=== PATIENT | female | born 1965 | race Caucasian/White ===

== ENCOUNTER 2017-09-19 10:52 | Emergency (ER) | payer MEDICARE, MEDICAID ==
[~2017-09-19] VITALS: Ht 165.1 cm; Wt 49.1 kg
[2017-09-19 10:54] VITALS: Ht 165.1 cm; Wt 49.1 kg
[2017-09-19] MEDS ORDERED: SYNTHROID88 MCG PO (10:58)
[2017-09-19] MEDS ORDERED: VALIUM5 MG PO (10:59)
[2017-09-19] MEDS ORDERED: ADDERALL 10 MG10 MG PO (10:59)
[2017-09-19] MEDS ORDERED: LYRICA225 MG PO (10:59)
[2017-09-19] MEDS ORDERED: LAMICTAL ODT200 MG PO (10:59)
[2017-09-19] MEDS ORDERED: PAXIL10 MG PO (11:00)
[2017-09-19 11:53] LABS: ALBUMIN 4.2 g/dL (3.4-5.0); ALKALINE PHOSPHATASE 109 U/L (46-116); ALT (SGPT) 15 U/L (10-68); BILIRUBIN - TOTAL 0.22 mg/dL (0.2-1.3); CALC OSMOLALITY 286 mosm/kg (275-300); CALCIUM 9.6 mg/dL (8.5-10.1); CARBON DIOXIDE 30.6 mmol/L (21.0-32.0); CHLORIDE - SERUM 105 mmol/L (98-107); CREATININE - SERUM 0.5 mg/dL (0.6-1.3); GLUCOSE 96 mg/dL (74-106); POTASSIUM - SERUM 4.3 mmol/L (3.5-5.1); PROTEIN - SERUM 7.9 g/dL (6.4-8.2); SODIUM 143 mmol/L (136-145); UREA NITROGEN 18 mg/dL (7-18); eGFR NON AFRICAN AMERICAN > 90 mL/min (90-120)
[2017-09-19 12:01] LABS: APPEARANCE CLEAR (CLEAR); BILIRUBIN NEGATIVE (NEGATIVE); COLOR YELLOW (YELLOW); GLUCOSE NEGATIVE (NEGATIVE); KETONE NEGATIVE (NEGATIVE); NITRITE NEGATIVE (NEGATIVE); PROTEIN NEGATIVE (NEGATIVE); UROBILINOGEN NORMAL (NORMAL)
[2017-09-19 12:02] LABS: THYROID STIMULATING HORMONE 0.29 uIU/mL (0.36-3.74)
[2017-09-19 12:37] LABS: BASOPHILS 0.2 % (0-2); HEMOGLOBIN 15.1 g/dL (12-16); IMMATURE GRANULOCYTES 0.2 % (0-5); LYMPHOCYTES 18.9 % (15-50); MCH 30.4 pg (26.0-34.0); MCHC 33.6 g/dL (31.0-37.0); MCV 90.7 fL (80.0-100.0); MEAN PLATELET VOLUME 9.4 fL (7.4-10.4); MONOCYTES 7.4 % (2-11); NEUTROPHILS 72.3 % (40-80); PLATELET COUNT 330 10x3/uL (130-400); RBC 4.96 10x6/uL (4.00-5.40); RDW 13.6 % (11.5-14.5); WBC 8.6 10x3/uL (4.8-10.8)
[2017-09-19] MEDS ORDERED: TYLENOL W/CODEI1 TAB PO (14:13)
[2017-09-19 14:54] VITALS: BP 135/87
== END 2017-09-19 14:54 | disposition home or self-care (01) ==
LOC: D.ER 10:52
PROVIDERS: Family Medicine
DX: E07.9 Disorder of thyroid, unspecified (principal); F90.9 Attention-deficit hyperactivity disorder, unspecified type; F17.200 Nicotine dependence, unspecified, uncomplicated